=== PATIENT | female | born 1990 | race African-American/Black ===

== ENCOUNTER 2016-09-26 17:27 | Emergency (ER) ==
--- NOTE | 2016-09-26 18:15 | PROVIDER DOCUMENTATION ---
HPI-General Adult - General Chief Complaint: Flu Symptoms Stated Complaint: COUGHING,CONGESTED,DIARRHEA,NAUSEA,SORE THROAT Time Seen by Provider: 09/26/16 17:43 Source: patient Allergies/Adverse Reactions: Patient Allergies Allergy/AdvReac Type Severity Reaction Status Date / Time Sulfa (Sulfonamide Allergy ANAPHYLAXIS Verified 09/26/16 18:03 Antibiotics) Home Medications: Meloxicam [Mobic] 15 mg PO QAM PRN 09/26/16 - History of Present Illness -Gen Adult Nature of Presenting Problems: 26 y/o BF c/o cough, congestion x 3 days; sore throat, chills, diarrhea x 1 day. 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 Denies any antibiotic use. No vomiting reported. States 6 episodes of diarrhea today. Pt had influenza vaccine x 1 month ago. states cough not productive. Review of Systems - Adult - REVIEW OF SYSTEMS - ADULT Constitutional: reports: see HPI, chills. denies: fever Eyes: reports: no symptoms reported. denies: blurred vision, double vision Ears, Nose, Mouth & Throat: reports: see HPI, ear pain, throat pain. denies: nose pain Cardiovascular: reports: no symptoms reported. denies: chest pain, palpitations Respiratory: reports: no symptoms reported, cough. denies: shortness of breath Gastrointestinal: reports: see HPI, diarrhea. denies: abdominal pain, nausea, vomiting Genitourinary: reports: no symptoms reported. denies: dysuria, frequency Musculoskeletal: reports: no symptoms reported. denies: joint pain, joint swelling Integumentary: reports: no symptoms reported. denies: nail changes, rash Neurological: reports: no symptoms reported. denies: numbness, paresthesia Psychiatric: reports: no symptoms reported Endocrine: reports: no symptoms reported. denies: cold intolerance, heat intolerance Hematologic/Lymphatic: reports: no symptoms reported. denies: easy bruising, prolonged bleeding Allergic/Immunologic: reports: no symptoms reported All Other Systems: Reviewed and Negative Past History - Adult - PAST MEDICAL HISTORY-ADULT Review of Records: reports: Nursing Assessment Review, Medications Reviewed - SOCIAL HISTORY Smoking: denies Physical Exam-General - CONSTITUTIONAL General Appearance: alert, mild distress - EYES Eyes: pink conjunctivae - HEAD, EARS, NOSE, MOUTH & THROAT HENMT: normocephalic/atraumatic, moist mucous membranes, TMs normal, pharyngeal erythema. negative: tonsillar exudate - NECK Neck: supple, normal inspection. negative: lymphadenopathy - RESPIRATORY Respiratory: lungs clear, normal breath sounds. negative: crackles, rales, rhonchi, stridor, wheezing - CARDIOVASCULAR Cardiovascular: regular rate, rhythm. negative: bradycardia, tachycardia - GASTROINTESTINAL (ABDOMEN) Abdominal Exam: normal bowel sounds, non tender, soft. negative: distended, guarding, rigid, rebound - MUSCULOSKELETAL Back Exam: no CVA tenderness Extremity: normal gait - SKIN Integumentary: normal color, normal turgor, warm/dry - NEUROLOGIC Neurologic: negative: aphasia - PSYCHIATRIC Psych/Mental Status: normal mood/affect, normal thought content, normal thought process, oriented x 3 Progress - PLAN OF CARE/RESULTS Progress/Plan/Lab Results: Orders Category Date Time Status DIRECT STREP Stat Lab 09/26/16 17:49 Completed INFLUENZA SCREEN A/B Stat Lab 09/26/16 17:49 Completed Vital Signs Temp Pulse Resp BP Pulse Ox 09/26/16 19:06 97.9 F 86 18 111/60 100 09/26/16 17:34 98.1 F 107 H 20 135/80 100 Sulfa (Sulfonamide Antibiotics) Allergy (Verified 09/26/16 18:03) ANAPHYLAXIS Ciprofloxacin HCl [Cipro] 500 mg PO BID #14 tablet 09/26/16 Meloxicam [Mobic] 15 mg PO QAM PRN 09/26/16 Prednisone 20 mg PO DAILY #12 tablet 09/26/16 Promethazine [Phenergan] 25 mg PO Q6H PRN PRN #20 tablet 09/26/16 Discussed results and f/u with pt, including medication use. Departure - Departure Time of Disposition Order: 18:29 DIAGNOSIS: URI (upper respiratory infection) Qualifiers: URI type: unspecified URI Qualified Code(s): J06.9 - Acute upper respiratory infection, unspecified Diarrhea Qualifiers: Diarrhea type: unspecified type Qualified Code(s): R19.7 - Diarrhea, unspecified Disposition: HOME 01 Certified Medical Emergency: Emergent Condition: Stable Additional Instructions: Take medications as directed. Return if symptoms get worse or follow up with PCP as needed. Drink plenty of fluids. ED Follow Up Instructions: You have been treated by a care provider in the Emergency Department. These instructions are being provided to you so you can have an understanding of how to care for yourself upon discharge. Upon discharge from the Emergency Department, you are responsible for making arrangements for follow-up care by a physician of your choice. Take all prescribed medications as directed. Return to the Emergency Department immediately for any new or worsening symptoms. You may call the Physician Referral phone number at [phone] to obtain a list of Physicians who are taking new patients. Prescriptions: Ciprofloxacin HCl [Cipro] 500 mg PO BID #14 tablet Promethazine [Phenergan] 25 mg PO Q6H PRN PRN #20 tablet PRN Reason: Nausea Prednisone 20 mg PO DAILY #12 tablet Referrals: None,PCP [Primary Care Provider] - Forms: Return to School/Parent Work Instructions: Upper Respiratory Infection, Pediatric, [id number], Diarrhea, [id number] Attestation - Physician/ Mid-level Attestation Patient care was provided by Mid-level provider (RN DELIVERY/PA):: Yes Mid-level provider:: Rhonda Menon Mid-level documentation review:: The Mid-level provider documentation, treatment plan and medical decision making was reviewed by the physician who agrees with all treatment and medical decision making by the MLP.
[2016-09-26 19:07] VITALS: BP 111/60
== END 2016-09-26 19:17 | disposition home or self-care (01) ==
LOC: ED 17:27
DX: J06.9 Acute upper respiratory infection, unspecified (principal); R19.7 Diarrhea, unspecified; R05 Cough; R09.81 Nasal congestion; R11.0 Nausea; J02.9 Acute pharyngitis, unspecified; R68.83 Chills (without fever); H92.09 Otalgia, unspecified ear
CPT/HCPCS: 87081; 87430; 87804; 99283

== ENCOUNTER 2016-12-05 13:12 | Emergency (ER) ==
[2016-12-05 13:24] VITALS: BP 134/74
--- NOTE | 2016-12-05 15:11 | PROVIDER DOCUMENTATION ---
HPI-EENT General - General Chief Complaint: Cold Symptoms Stated Complaint: COLD SX Time Seen by Provider: 12/05/16 14:22 Source: patient Allergies/Adverse Reactions: Patient Allergies Allergy/AdvReac Type Severity Reaction Status Date / Time Sulfa (Sulfonamide Allergy ANAPHYLAXIS Verified 12/05/16 14:47 Antibiotics) Home Medications: Home Medication List Medication Instructions Recorded Confirmed Last Taken Type Amoxicillin [Amoxil] 500 mg PO BID #14 capsule 12/05/16 Unknown Rx Fluticasone 50 Mcg Nasal [place] 1 spray OLLIE DAILY #1 bottle 12/05/16 Unknown Rx [Flonase] - History of Present Illness-EENT General Nature of Presenting Problem: 26 y/o AAF c/o maxillary sinus tenderness, and purulent drainage x 4 days. Denies fevers or chills. Pain radiates to the ears bilaterally. Denies cough or congestion. Denies abdominal pain, n/v/d. Review of Systems - Adult - REVIEW OF SYSTEMS - ADULT Constitutional: reports: see [employer]. denies: chills, fever Eyes: reports: no symptoms reported. denies: decreased vision, blurred vision, double vision, eye pain Ears, Nose, Mouth & Throat: reports: see HPI, ear pain, sinus problem, throat pain. denies: nose pain Cardiovascular: reports: no symptoms reported. denies: chest pain, palpitations Respiratory: reports: no symptoms reported. denies: cough, shortness of breath , wheezing Gastrointestinal: reports: no symptoms reported. denies: abdominal pain, diarrhea, nausea, vomiting Genitourinary: reports: no symptoms reported. denies: dysuria, discharge, frequency Musculoskeletal: reports: no symptoms reported. denies: back pain, muscle aches Integumentary: reports: no symptoms reported. denies: rash Neurological: reports: no symptoms reported Psychiatric: reports: no symptoms reported Endocrine: reports: no symptoms reported Hematologic/Lymphatic: reports: no symptoms reported Allergic/Immunologic: reports: no symptoms reported All Other Systems: Reviewed and Negative Past History - Adult - PAST MEDICAL HISTORY-ADULT Review of Records: reports: Old Records Reviewed, Nursing Assessment Review, Medications Reviewed Major Childhood Illnesses: reports: denies history Cardiovascular: reports: denies history Respiratory: reports: denies history Gastrointestinal: reports: denies history Obstetrical/Gynecological: reports: denies history Genitourinary: reports: denies history Musculoskeletal: reports: denies history Neurological: reports: denies history Endocrine/Immune: reports: denies history Other Conditions: reports: denies history - FAMILY HISTORY Family History: reviewed, not pertinent - SOCIAL HISTORY Smoking: denies Substance Use: none/never Alcohol Use Frequency: sober (former use) Physical Exam- EENT - Physical Exam EENT Initial Vital Signs Reviewed: Yes General Appearance: appears well, alert, no apparent distress Eye Exam: bilateral eye: normal inspection, PERRL, EOMI Ear Exam: bilateral ear: auricle normal, canal normal, TM normal (retracted bilaterally ) Nasal Exam: sinus tenderness Throat Exam: normal mouth inspection, pharynx normal Neck: non-tender, full range of motion, supple, normal inspection Respiratory: chest non-tender, lungs clear, normal breath sounds, no pleuratic chest pain, no respiratory distress, no accessory muscle use. negative: respiratory distress, decreased breath sounds, accessory muscle use, crackles, rales, rhonchi, wheezing Cardiovascular: normal peripheral pulses, regular rate, rhythm Extremity: normal gait Integumentary: normal color, normal turgor, warm/dry Neurologic: grossly normal, no motor/sensory deficits Psych/Mental Status: normal mood/affect, normal thought content, normal thought process, oriented x 3 Progress - PLAN OF CARE/RESULTS Progress/Plan/Lab Results: Vital Signs Temp Pulse Resp BP Pulse Ox 12/05/16 13:22 97.8 F 81 18 134/74 100 Sulfa (Sulfonamide Antibiotics) Allergy (Verified 12/05/16 14:47) ANAPHYLAXIS Amoxicillin [Amoxil] 500 mg PO BID #14 capsule 12/05/16 Fluticasone 50 Mcg Nasal [place] [Flonase] 1 spray OLLIE DAILY #1 bottle 12/05/16 Orders Category Date Time Status Dexamethasone [Decadron] Med 12/05/16 15:15 Once 4 mg IM NOW ONE Departure - Departure Time of Disposition Order: 15:10 DIAGNOSIS: Acute sinusitis Qualifiers: Sinusitis location: maxillary Recurrence: non-recurrent Qualified Code(s): J01.00 - Acute maxillary sinusitis, unspecified Disposition: HOME 01 Certified Medical Emergency: Emergent Condition: Stable Additional Instructions: ED Follow Up Instructions: You have been treated by a care provider in the Emergency Department. These instructions are being provided to you so you can have an understanding of how to care for yourself upon discharge. Upon discharge from the Emergency Department, you are responsible for making arrangements for follow-up care by a physician of your choice. Take all prescribed medications as directed. Return to the Emergency Department immediately for any new or worsening symptoms. You may call the Physician Referral phone number at [phone] to obtain a list of Physicians who are taking new patients. Prescriptions: Amoxicillin [Amoxil] 500 mg PO BID #14 capsule Fluticasone 50 Mcg Nasal [place] [Flonase] 1 spray OLLIE DAILY #1 bottle Referrals: None,PCP [Primary Care Provider] - Instructions: Sinusitis, [id number]
[2016-12-05] MEDS ORDERED: DECADRON IM ONE (15:15)
== END 2016-12-05 15:36 | disposition home or self-care (01) ==
LOC: ED 13:12
DX: J01.00 Acute maxillary sinusitis, unspecified (principal); J34.89 Other specified disorders of nose and nasal sinuses; H92.03 Otalgia, bilateral; R53.83 Other fatigue; J02.9 Acute pharyngitis, unspecified
CPT/HCPCS: 96372; J1100